=== PATIENT | female | born 1965 | race Caucasian/White ===

== ENCOUNTER 2021-03-21 10:43 | Inpatient (IN) ==
[2021-03-21] MEDS ORDERED: SODIUM CHLORIDE 0.9% 1000ML 1,000 ML IV SCH (12:00)
--- NOTE | 2021-03-21 12:01 | XRay Report ---
XR chest 1V portable HISTORY: 56 years-old Female weakness acute weakness COMPARISON: None TECHNIQUE: Portable AP view of the chest FINDINGS: Cardiac silhouette is enlarged. A battery pack projects of the left chest with a single lead projecte d over the left neck. Lungs are mildly hypoinflated. There is no pneumothorax, pleural effusion, airs pace consolidation or overt pulmonary edema. Bones of the chest appear grossly intact. IMPRESSION: Hypoinflation without acute process. ACT 112: Negative or not required by law. The above report was generated using voice recognition software. It may contain grammatical, syntax o r spelling errors. Electronically signed by: Maurice Delgado M.D. 03/21/2021 11:59 AM
--- NOTE | 2021-03-21 12:10 | Emergency Department Note ---
Impression & Plan AMS (altered mental status), [facility] ED Provider Note NAME: BRADY BARBOSA AGE: 56 SEX: F : 1965 ARRIVES VIA: Walk-In INFORMANT: Patient, care support representative ED PROVIDER(S): Tip Suazo DO CHIEF COMPLAINT: weak and falls HPI: Patient is a 56-year-old female who presents the ER for weakness. Patient has been getting much more weaker and confused over the past 2 to 3 weeks. This has been gradually going downhill over the past 2 months. Patient is having trouble standing and getting dressed. She normally knows where she is and what is going on but has been confused to the point that she does not know any of this. Patient denies any headache or change in vision. She admits to some belly pain as well as chronic back pain. Denies any pain in the arms or legs. No nausea, vomiting, or diarrhea. No dysuria, urgency, or frequency. No other exacerbating or remitting factors. ROS: See above HPI for pertinent positives & negatives. A total of 10 systems reviewed and were otherwise negative. PAST MEDICAL HISTORY:See Below PAST SURGICAL HISTORY:See Below FAMILY HISTORY:See Below SOCIAL HISTORY:See Below HOME MEDICATIONS:See Below ALLERGIES:See Below VITALS:See Below PHYSICAL EXAMINATION: GENERAL: Sitting up in bed, alert, chronically ill-appearing, disheveled EYE EXAM: normal conjunctiva. PERRL and EOM's intact. OROPHARYNX: no exudate, no erythema, lips, buccal mucosa, and tongue normal and mucous membranes are moist NECK: supple, no nuchal rigidity, no adenopathy, non-tender LUNGS: Clear to auscultation. Normal chest wall mechanics HEART: no murmurs, S1 normal and S2 normal ABDOMEN: abdomen soft, non-tender, normo-active bowel sounds, no masses, no rebound or guarding. BACK: Back is symmetrical on inspection and there is no deformity, no midline tenderness, no CVA tenderness. UPPER EXTREMITIES: upper extremities are grossly normal. LOWER EXTREMITIES: No pitting edema. NEURO EXAM: Awake alert not oriented to person or place, cranial nerves II-XII intact, normal speech, no weakness of arms, no weakness of legs. No drift. F thad to nose intact. Gross sensation intact. MEDICAL DECISION MAKING: Patient is a 56-year-old female who presents the ER for altered mental status brought in by caretakers. IV was established blood was obtained. Labs show mild leukocytosis 10.9 thousand. No significant anemia. INR unremarkable. ABG with a pH of 7.28 and a CO2 of 61. BMP with LFTs bilirubin was unremarkable. Troponin was negative. Ammonia was elevated at 51. TSH was unremarkable. Covid was negative. CT head cervical spine abdomen pelvis showed some thickening of the bowel. Patient was given IV fluids. She was placed on BiPAP for the elevated CO2. She was discussed with hospitalist admitted for further work-up of her recurrent falls altered mental status and [facility]car[facility]. Triage Nursing notes reviewed. Limited review of prior medical records performed Vital Signs: reviewed and remarkable for no significant abnormalities Differential diagnosis: Differential diagnoses includes but is not limited to toxic, metabolic, infectious, traumatic, cardiac, neurologic, hematologic, psychiatric and inflammatory etiologies. ER treatment provided: See below Diagnostics interpreted by me: ECG: Sinus rhythm rate of 6 7 Normal axis No PVCs QTC 420 Cardiac Monitoring: An order was placed for continuous cardiac monitoring. The monitor shows a rate of 62 with sinus rhythm. Laboratory studies: As stated above and show below. Imaging studies: See below Consultation(s): Discussed with hospitalist for further evaluation Procedures: none Critical Care: I have personally spent 32 minutes of critical care time in the direct management of this patient. This includes bedside care, interpretation of diagnostic studies, and testing, discussion with consultants, patient, and family members, and other required patient management activities. This 32 minutes is in excess of all separately billable procedures. Past Med/Surg History Social History Preferred Language: Bur[place]ian Feels Safe at Home: Yes Allergies Allergies Allergy/AdvReac Type Severity Reaction Status Date / Time topiramate [From Topamax] Allergy Unknown Verified 03/21/21 15:22 Home Meds Home Medications Medication Instructions Recorded Confirmed acetaminophen [Tylenol Extra 500 mg PO Q4 PRN 03/21/21 03/21/21 Strength] aluminum hydrox-magnesium carb 10 ml PO UD 03/21/21 03/21/21 [Antacid] brivaracetam [Briviact] 100 mg PO BID 03/21/21 03/21/21 calcium carbonate-vitamin D3 1 cap PO DAILY 03/21/21 03/21/21 [Calcium 600 with Vitamin D3] carboxymethylcellulose-glycern 1 drp OPHTHALMIC (EYE) BID 03/21/21 03/21/21 [Refresh Relieva] chlorpheniramine-acetaminophen 2 tab PO Q4 PRN 03/21/21 03/21/21 [Coricidin HBP Cold and Flu] clobazam 20 mg PO HS 03/21/21 03/21/21 clobazam [Onfi] 10 mg PO DAILY 03/21/21 03/21/21 clonazepam 1 mg PO UD 03/21/21 03/21/21 clotrimazole 1 applic TOPICAL BID PRN 03/21/21 03/21/21 cyclobenzaprine 10 mg PO Q8 PRN 03/21/21 03/21/21 docusate sodium 100 mg PO BID 03/21/21 03/21/21 donepezil 5 mg PO HS 03/21/21 03/21/21 escitalopram oxalate 20 mg PO DAILY 03/21/21 03/21/21 fenofibrate micronized 134 mg PO DAILY 03/21/21 03/21/21 gabapentin 400 mg PO HS 03/21/21 03/21/21 gabapentin 400 mg PO TID 03/21/21 03/21/21 ibuprofen 200 mg PO Q4 PRN 03/21/21 03/21/21 lactulose 15 ml PO Q6 03/21/21 03/21/21 lamotrigine 200 mg PO TID 03/21/21 03/21/21 metoprolol tartrate 12.5 mg PO DIRECTED 03/21/21 03/21/21 naproxen sodium [All Day Relief] 440 mg PO Q12H PRN 03/21/21 03/21/21 omeprazole 20 mg PO DAILY 03/21/21 03/21/21 quetiapine 400 mg PO HS 03/21/21 03/21/21 trazodone 150 mg PO HS 03/21/21 03/21/21 Results & Data (ED) Vital Signs Vital Signs - 24 hr 03/21/21 11:01 03/21/21 12:21 03/21/21 12:25 Temperature 36.2 C L Temperature Source Temporal Artery Scan Pulse Rate 71 69 72 Pulse Rate from SpO2 Sensor 68 Respiratory Rate 14 19 20 Respiratory Effort / Characteristics Respiratory Depth Blood Pressure 109/73 118/74 Blood Pressure [Left Arm] 118/74 Blood Pressure Mean 85 88 Blood Pressure Mean [Left Arm] 88 Pulse Oximetry 93 91 90 Oxygen Delivery Method Room Air Room Air Fraction of Inspired Oxygen Sepsis New/Unexplained Change in Mental Status N/A Sepsis Action Taken by Nursing No Action Required 03/21/21 13:00 03/21/21 13:31 03/21/21 13:40 Temperature Temperature Source Pulse Rate 65 65 65 Pulse Rate from SpO2 Sensor 65 65 Respiratory Rate 22 27 H 21 Respiratory Effort / Characteristics Respiratory Depth Blood Pressure 116/82 Blood Pressure [Left Arm] Blood Pressure Mean 93 Blood Pressure Mean [Left Arm] Pulse Oximetry 91 92 Oxygen Delivery Method Fraction of Inspired Oxygen Sepsis New/Unexplained Change in Mental Status Sepsis Action Taken by Nursing 03/21/21 13:50 03/21/21 14:00 03/21/21 14:10 Temperature Temperature Source Pulse Rate 65 66 65 Pulse Rate from SpO2 Sensor 65 65 65 Respiratory Rate 21 21 25 H Respiratory Effort / Characteristics Respiratory Depth Blood Pressure Blood Pressure [Left Arm] Blood Pressure Mean Blood Pressure Mean [Left Arm] Pulse Oximetry 93 93 93 Oxygen Delivery Method Fraction of Inspired Oxygen Sepsis New/Unexplained Change in Mental Status Sepsis Action Taken by Nursing 03/21/21 14:20 03/21/21 14:30 03/21/21 14:40 Temperature Temperature Source Pulse Rate 63 63 61 Pulse Rate from SpO2 Sensor 63 63 61 Respiratory Rate 21 20 22 Respiratory Effort / Characteristics Respiratory Depth Blood Pressure Blood Pressure [Left Arm] Blood Pressure Mean Blood Pressure Mean [Left Arm] Pulse Oximetry 94 93 92 Oxygen Delivery Method Fraction of Inspired Oxygen Sepsis New/Unexplained Change in Mental Status Sepsis Action Taken by Nursing 03/21/21 14:50 03/21/21 15:00 03/21/21 15:10 Temperature Temperature Source Pulse Rate 70 63 64 Pulse Rate from SpO2 Sensor 67 61 68 Respiratory Rate 17 22 25 H Respiratory Effort / Characteristics Respiratory Depth Blood Pressure Blood Pressure [Left Arm] Blood Pressure Mean Blood Pressure Mean [Left Arm] Pulse Oximetry 93 93 92 Oxygen Delivery Method Fraction of Inspired Oxygen Sepsis New/Unexplained Change in Mental Status Sepsis Action Taken by Nursing 03/21/21 15:20 03/21/21 15:30 03/21/21 16:00 Temperature Temperature Source Pulse Rate 64 65 63 Pulse Rate from SpO2 Sensor 66 69 Respiratory Rate 24 20 21 Respiratory Effort / Characteristics Respiratory Depth Blood Pressure 128/82 Blood Pressure [Left Arm] Blood Pressure Mean 97 Blood Pressure Mean [Left Arm] Pulse Oximetry 87 L 93 Oxygen Delivery Method Fraction of Inspired Oxygen Sepsis New/Unexplained Change in Mental Status Sepsis Action Taken by Nursing 03/21/21 16:30 03/21/21 16:42 03/21/21 17:00 Temperature Temperature Source Pulse Rate 66 67 65 Pulse Rate from SpO2 Sensor 65 Respiratory Rate 19 18 23 Respiratory Effort / Characteristics Non-Labored Spontaneous Respiratory Depth Normal Blood Pressure 131/82 119/80 Blood Pressure [Left Arm] Blood Pressure Mean 98 93 Blood Pressure Mean [Left Arm] Pulse Oximetry 94 99 Oxygen Delivery Method Fraction of Inspired Oxygen 30 Sepsis New/Unexplained Change in Mental Status Sepsis Action Taken by Nursing 03/21/21 17:30 03/21/21 18:00 03/21/21 18:49 Temperature Temperature Source Pulse Rate 63 65 Pulse Rate from SpO2 Sensor 63 65 Respiratory Rate 18 21 Respiratory Effort / Characteristics Respiratory Depth Blood Pressure 121/81 116/79 Blood Pressure [Left Arm] Blood Pressure Mean 94 91 Blood Pressure Mean [Left Arm] Pulse Oximetry 100 96 Oxygen Delivery Method BiPAP Fraction of Inspired Oxygen Sepsis New/Unexplained Change in Mental Status Sepsis Action Taken by Nursing Laboratory Data Result diagrams: 03/21/21 12:14 03/21/21 12:14 Lab Results 03/21/21 03/21/21 03/21/21 Range/Units 12:14 12:14 12:14 WBC 10.91 H (4.8-10.8) K/uL RBC 4.33 (4.2-5.4) M/uL Hgb 13.0 (12.0-16.0) g/dL Hct 40.6 (37-47) % MCV 93.8 (80-100) fL MCH 30.0 (25-34) pg MCHC 32.0 (32-36) g/dL RDW Std Deviation 46.3 (36.4-46.3) fL RDW Coeff of Yulissa 13.5 (11.5-14.5) % Plt Count 293 (130-400) K/uL MPV 10.0 (7.4-10.4) fL Immature Gran % (Auto) 0.5 % Neut % (Auto) 72.2 % Lymph % (Auto) 21.4 % Yolo % (Auto) 3.6 % Eos % (Auto) 2.1 % Baso % (Auto) 0.2 % Neut # (Auto) 7.89 H (1.4-6.5) K/uL Lymph # (Auto) 2.33 (1.2-3.4) K/uL [place] # (Auto) 0.39 (0.11-0.59) K/uL Eos # (Auto) 0.23 (0-0.5) K/uL Baso # (Auto) 0.02 (0-0.2) K/uL Immature Gran # (Auto) 0.05 H (0.00-0.02) K/uL PT 11.1 (9.0-12.0) Seconds INR 1.1 (0.9-1.1) VBG pH (7.36-7.41) VBG pCO2 (38-50) mmHg VBG pO2 mmHg VBG HCO3 mmol/L VBG O2 Saturation % VBG Base Excess mEq/L Barometric Pressure mm/Hg Sodium 138 (136-145) mmol/L Potassium 4.2 (3.5-5.1) mmol/L Chloride 106 (98-107) mmol/L Carbon Dioxide 30 (21-32) mmol/L Anion Gap 2.0 L (3-11) BUN 15 (7-18) mg/dl Creatinine 0.82 (0.6-1.2) mg/dl Est Cr Clr Drug Dosing Not Reportable Est GFR ( Amer) 94.0 ml/min Est GFR (Non-Af Amer) 81.1 ml/min BUN/Creatinine Ratio 18.0 (10-20) Glucose 88 (70-99) mg/dl Calcium 9.6 (8.5-10.1) mg/dl Total Bilirubin 0.4 (0.2-1) mg/dl AST 47 H (15-37) U/L ALT 48 (12-78) U/L Alkaline Phosphatase 64 (45-117) U/L Ammonia (11-32) umol/L Troponin I < 0.015 (0-0.045) ng/ml Total Protein 7.5 (6.4-8.2) gm/dl Albumin 3.8 (3.4-5.0) gm/dl Globulin 3.7 (2.5-4.0) gm/dl Albumin/Globulin Ratio 1.0 (0.9-2) Procalcitonin TSH 1.510 (0.300-4.500) uIu/ml Specimen Hemolysis COVID-19 Eval Order SARS-CoV-2 (PCR) (Negative) 03/21/21 03/21/21 03/21/21 Range/Units 12:14 12:30 14:17 WBC (4.8-10.8) K/uL RBC (4.2-5.4) M/uL Hgb (12.0-16.0) g/dL Hct (37-47) % MCV (80-100) fL MCH (25-34) pg MCHC (32-36) g/dL RDW Std Deviation (36.4-46.3) fL RDW Coeff of Yulissa (11.5-14.5) % Plt Count (130-400) K/uL MPV (7.4-10.4) fL Immature Gran % (Auto) % Neut % (Auto) % Lymph % (Auto) % [place] % (Auto) % Eos % (Auto) % Baso % (Auto) % Neut # (Auto) (1.4-6.5) K/uL Lymph # (Auto) (1.2-3.4) K/uL Yolo # (Auto) (0.11-0.59) K/uL Eos # (Auto) (0-0.5) K/uL Baso # (Auto) (0-0.2) K/uL Immature Gran # (Auto) (0.00-0.02) K/uL PT (9.0-12.0) Seconds INR (0.9-1.1) VBG pH 7.28 L (7.36-7.41) VBG pCO2 61 H (38-50) mmHg VBG pO2 30 mmHg VBG HCO3 28 mmol/L VBG O2 Saturation < 60.0 % VBG Base Excess 0.4 mEq/L Barometric Pressure 735.8 mm/Hg Sodium (136-145) mmol/L Potassium (3.5-5.1) mmol/L Chloride (98-107) mmol/L Carbon Dioxide (21-32) mmol/L Anion Gap (3-11) BUN (7-18) mg/dl Creatinine (0.6-1.2) mg/dl Est Cr Clr Drug Dosing Est GFR ( Amer) ml/min Est GFR (Non-Af Amer) ml/min BUN/Creatinine Ratio (10-20) Glucose (70-99) mg/dl Calcium (8.5-10.1) mg/dl Total Bilirubin (0.2-1) mg/dl AST (15-37) U/L ALT (12-78) U/L Alkaline Phosphatase (45-117) U/L Ammonia 51.0 H (11-32) umol/L Troponin I (0-0.045) ng/ml Total Protein (6.4-8.2) gm/dl Albumin (3.4-5.0) gm/dl Globulin (2.5-4.0) gm/dl Albumin/Globulin Ratio (0.9-2) Procalcitonin Cancelled TSH (0.300-4.500) uIu/ml Specimen Hemolysis COVID-19 Eval Order SARS-CoV-2 (PCR) (Negative) 03/21/21 03/21/21 Range/Units 14:31 14:31 WBC (4.8-10.8) K/uL RBC (4.2-5.4) M/uL Hgb (12.0-16.0) g/dL Hct (37-47) % MCV (80-100) fL MCH (25-34) pg MCHC (32-36) g/dL RDW Std Deviation (36.4-46.3) fL RDW Coeff of Yulissa (11.5-14.5) % Plt Count (130-400) K/uL MPV (7.4-10.4) fL Immature Gran % (Auto) % Neut % (Auto) % Lymph % (Auto) % Y[place] % (Auto) % Eos % (Auto) % Baso % (Auto) % Neut # (Auto) (1.4-6.5) K/uL Lymph # (Auto) (1.2-3.4) K/uL Y[place] # (Auto) (0.11-0.59) K/uL Eos # (Auto) (0-0.5) K/uL Baso # (Auto) (0-0.2) K/uL Immature Gran # (Auto) (0.00-0.02) K/uL PT (9.0-12.0) Seconds INR (0.9-1.1) VBG pH (7.36-7.41) VBG pCO2 (38-50) mmHg VBG pO2 mmHg VBG HCO3 mmol/L VBG O2 Saturation % VBG Base Excess mEq/L Barometric Pressure mm/Hg Sodium (136-145) mmol/L Potassium (3.5-5.1) mmol/L Chloride (98-107) mmol/L Carbon Dioxide (21-32) mmol/L Anion Gap (3-11) BUN (7-18) mg/dl Creatinine (0.6-1.2) mg/dl Est Cr Clr Drug Dosing Est GFR ( Amer) ml/min Est GFR (Non-Af Amer) ml/min BUN/Creatinine Ratio (10-20) Glucose (70-99) mg/dl Calcium (8.5-10.1) mg/dl Total Bilirubin (0.2-1) mg/dl AST (15-37) U/L ALT (12-78) U/L Alkaline Phosphatase (45-117) U/L Ammonia (11-32) umol/L Troponin I (0-0.045) ng/ml Total Protein (6.4-8.2) gm/dl Albumin (3.4-5.0) gm/dl Globulin (2.5-4.0) gm/dl Albumin/Globulin Ratio (0.9-2) Procalcitonin TSH (0.300-4.500) uIu/ml Specimen Hemolysis COVID-19 Eval Order Covid19 at [facility] SARS-CoV-2 (PCR) NEGATIVE (Negative) Administered Medications Discontinued Medications Sodium Chloride (Nss 1000ml) 1,000 mls @ 999 mls/hr IV .Q1H1M LILO Stop: 03/21/21 13:00 Last Infusion: 03/21/21 13:54 Dose: 0 mls/hr Documented by: [id number] Admin: 03/21/21 12:31 Dose: 999 mls/hr Documented by: [id number] Ioversol (Optiray 320 100ml) 94 ml IV ONCE ONE Stop: 03/21/21 13:13 Last Admin: 03/21/21 13:13 Dose: 94 ml Documented by: [id number] Imaging Data Radiologist's Impression: Chest X-Ray 03/21/21 11:46 XR chest 1V portable HISTORY: 56 years-old Female weakness acute weakness COMPARISON: None TECHNIQUE: Portable AP view of the chest FINDINGS: Cardiac silhouette is enlarged. A battery pack projects of the left chest with a single lead projected over the left neck. Lungs are mildly hypoinflated. There is no pneumothorax, pleural effusion, airspace consolidation or overt pulmonary edema. Bones of the chest appear grossly intact. IMPRESSION: Hypoinflation without acute process. ACT 112: Negative or not required by law. The above report was generated using voice recognition software. It may contain grammatical, syntax or spelling errors. Electronically signed by: Maurice Delgado M.D. 03/21/2021 11:[address] 03/21/21 11:46 CT head/brain wo con CLINICAL HISTORY: 56 years-old Female with headache. Acute headache TECHNIQUE: Multiple axial CT images of the head were obtained without contrast. A dose lowering technique was utilized adhering to the principles of ALARA. COMPARISON: CT cervical spine of same day FINDINGS: No acute intracranial hemorrhage, midline shift, intracranial mass, hydrocephalus, territorial ischemia or abnormal extra-axial collection. Senescent calcifications of the basal ganglia. The calvarium is intact. Mastoid air cells are clear. Moderate mucosal thickening of the maxillary sinuses with air-fluid levels. Severe mucosal thickening of the ethmoid air cells. Mucosal thickening of the frontal and ethmoid sinuses with small left sinus air-fluid level. Unremarkable soft tissues and orbits. IMPRESSION: 1. No acute intracranial abnormality. 2. Paranasal sinus disease with suggestion of acute sinusitis. ACT 112: Negative or not required by law. The above report was generated using voice recognition software. It may contain grammatical, syntax or spelling errors. Electronically signed by: Maurice Delgado M.D. 03/21/2021 1:25 PM Abdomen/Pelvis CT 03/21/21 12:[address] WITH IV CONTRAST CT DOSE: HISTORY: Weakness. Confusion. Difficulty walking. TECHNIQUE: Multiaxial CT images of the abdomen and pelvis were performed following the use of intravenous contrast. A dose lowering technique was utilized adhering to the principles of ALARA. COMPARISON STUDY: None. FINDINGS: Faint groundglass densities within the right lower lung zone may represent mild dependent change. No pneumoperitoneum. No pneumatosis. No fractures within the visualized osseous structures. Degenerative changes within the mid to lower lumbar spine. Mild hepatic steatosis. No hepatic or splenic masses. The right adrenal gland, pancreas, and gallbladder are unremarkable. Mild bilateral perinephric edema. This is likely chronic. No hydronephrosis. Normal right kidney. There is a 9 mm exophytic hypodense lesion within the left kidney. This is technically too small to characterize but favors a cyst. There is a 7 mm left adrenal gland nodule. This is also difficult to characterize due to its small size. No retroperitoneal lymphadenopathy. Normal caliber abdominal aorta. The main portal vein is patent. Punctate focus of gas within the bladder lumen. Prior hysterectomy. Trace pelvic free fluid. No evidence for bowel obstruction. Normal appendix. Mild thickening and pericolonic fat stranding involving the ascending colon and transverse colon consistent with a nonspecific colitis. This favors an infectious or inflammatory process. The area bowel wall thickening is most pronounced within the mid to distal colon best seen on image 141. IMPRESSION: 1. [id number] bowel wall thickening with mild pericolonic inflammatory change involving the ascending colon and transverse colon. This is consistent with a nonspecific colitis and favors an infectious or inflammatory process. Follow-up abdomen and pelvis CT in 3 months is recommended to ensure resolution of the areas of bowel wall thickening and exclude the less likely possibility of underlying lesion in the area of most pronounced bowel wall thickening at the mid to distal transverse colon. 2. No evidence for bowel obstruction. 3. Normal appendix. 4. Mild hepatic steatosis. 5. Trace pelvic free fluid. 6. Punctate focus of gas within the bladder lumen. This could be due to recent catheterization. 7. A 7 mm indeterminate left adrenal gland nodule. ACT 112: Positive. There are findings on this exam that require communication between the performing entity and the patient following Patient Test Result Information Act ([place] Act 112) guidelines. Electronically signed by: Benny Islas M.D. 03/21/2021 1:[address] 03/21/21 12:08 CT OF THE CERVICAL SPINE CLINICAL HISTORY: Neck pain status post trauma COMPARISON STUDY: No previous studies for comparison. CT DOSE: 2272.98 mGy.cm TECHNIQUE: CT scan of the cervical spine was performed from the skull base to the thoracic inlet. Images are reviewed in the axial, sagittal, and coronal planes. IV contrast was not administered for this examination. A dose lowering technique was utilized adhering to the principles of ALARA. FINDINGS: The visualized portions of the lung apices reveal no evidence of pneumothorax. Stimulator electrodes are visualized within the left neck. The prevertebral soft tissues are normal. No acute fractures or subluxations are visualized. There are multilevel degenerative changes. Mild T2 and T3 superior endplate deformities are likely old. IMPRESSION: No evidence of acute fracture or traumatic subluxation. ACT 112: Negative or not required by law. Electronically signed by: Aashish Salazar M.D. 03/21/2021 1:33 PM Discharge Plan Visit Data Chief Complaint: Illness Stated Complaint: FALLING,PALE,WEAK,CANT EAT/DRINK OR STAND ED Provider: Tip Suazo Discharge Problem: AMS (altered mental status), [facility] Discharge Instructions Interventions: ED Discharge Assessment Last Done: 03/21/21 18:49 Forms Stand Alone Forms: [facility] Prescriptions Prescriptions: No Action cyclobenzaprine 10 mg tablet 10 mg PO Q8 PRN (Reason: Muscle Spasm) RF: 0 Antacid 95-358 mg/15 mL Suspension 10 ml PO UD RF: 0 lamotrigine 200 mg tablet 200 mg PO TID RF: 0 donepezil 5 mg tablet 5 mg PO HS RF: 0 gabapentin 400 mg capsule 400 mg PO TID RF: 0 acetaminophen [Tylenol Extra Strength] 500 mg Tablet 500 mg PO Q4 PRN (Reason: hernandez/fever) RF: 0 fenofibrate micronized 134 mg capsule 134 mg PO DAILY RF: 0 gabapentin 800 mg tablet 400 mg PO HS RF: 0 trazodone 150 mg tablet 150 mg PO HS RF: 0 naproxen sodium [All Day Relief] 220 mg Tablet 440 mg PO Q12H PRN (Reason: Pain) RF: 0 ibuprofen 200 mg Tablet 200 mg PO Q4 PRN (Reason: Fever Or Pain) RF: 0 docusate sodium 100 mg Capsule 100 mg PO BID RF: 0 omeprazole 20 mg capsule,delayed release(DR/EC) 20 mg PO DAILY RF: 0 clotrimazole 1 % Cream 1 applic TOPICAL BID PRN (Reason: candidiasis) RF: 0 Coricidin HBP Cold and Flu 2-325 mg Tablet 2 tab PO Q4 PRN (Reason: body aches/congestion) RF: 0 escitalopram oxalate 20 mg tablet 20 mg PO DAILY RF: 0 clonazepam 1 mg tablet,disintegrating 1 mg PO UD RF: 0 metoprolol tartrate 25 mg tablet 12.5 mg PO DIRECTED RF: 0 lactulose 10 gram/15 mL solution 15 ml PO Q6 RF: 0 quetiapine 400 mg tablet 400 mg PO HS RF: 0 Refresh Relieva 0.5-0.9 % Drops 1 drp OPHTHALMIC (EYE) BID RF: 0 calcium carbonate-vitamin D3 [Calcium 600 with Vitamin D3] 600 mg(1,500mg) - 500 unit Capsule 1 cap PO DAILY RF: 0 clobazam 10 mg tablet 20 mg PO HS RF: 0 clobazam [Onfi] 10 mg tablet 10 mg PO DAILY RF: 0 Briviact 100 mg tablet 100 mg PO BID RF: 0 Referrals Referrals: Nestor Pruett, [Primary Care Provider] - Discharge Problem: AMS (altered mental status) Qualifiers: Altered mental status type: unspecified Qualified Code(s): R41.82 - Altered mental status, unspecified
[2021-03-21 12:24] LABS: Basophils # (auto) 0.02 K/uL (0-0.2); Basophils % (auto) 0.2 %; Eosinophils # (auto) 0.23 K/uL (0-0.5); Eosinophils % (auto) 2.1 %; Hematocrit (blood only) 40.6 % (37-47); Immature Granulocytes # (auto) 0.05 K/uL (0.00-0.02); Immature Granulocytes % (auto) 0.5 %; Lymphocytes # (auto) 2.33 K/uL (1.2-3.4); Lymphocytes % (auto) 21.4 %; Mean Corpuscular Volume 93.8 fL (80-100); Monocytes # (auto) 0.39 K/uL (0.11-0.59); Monocytes % (auto) 3.6 %; Neutrophils # (auto) 7.89 K/uL (1.4-6.5); Neutrophils % (auto) 72.2 %; Platelet Count 293 K/uL (130-400); RDW Coefficient of Variation 13.5 % (11.5-14.5); RDW Standard Deviation 46.3 fL (36.4-46.3); Red Blood Count 4.33 M/uL (4.2-5.4); White Blood Count 10.91 K/uL (4.8-10.8)
[2021-03-21 12:32] LABS: INR 1.1 (0.9-1.1); Prothrombin Time 11.1 Seconds (9.0-12.0)
[2021-03-21 12:50] LABS: Alanine Aminotransferase 48 U/L (12-78); Albumin Level 3.8 gm/dl (3.4-5.0); Aspartate Aminotransferase 47 U/L (15-37); Blood Urea Nitrogen 15 mg/dl (7-18); Calcium 9.6 mg/dl (8.5-10.1); Carbon Dioxide 30 mmol/L (21-32); Chloride 106 mmol/L (98-107); Est GFR (Non-African American) 81.1 ml/min; Glucose 88 mg/dl (70-99); Potassium 4.2 mmol/L (3.5-5.1); Sodium 138 mmol/L (136-145)
[2021-03-21 13:03] LABS: Alkaline Phosphatase 64 U/L (45-117); Bilirubin,Total 0.4 mg/dl (0.2-1); Globulin 3.7 gm/dl (2.5-4.0); Total Protein 7.5 gm/dl (6.4-8.2); Troponin I < 0.015 ng/ml (0-0.045)
[2021-03-21] MEDS ORDERED: OPTIRAY 320 100ml IV ONE (13:12)
--- NOTE | 2021-03-21 13:26 | CT Scan Report ---
CT head/brain wo con CLINICAL HISTORY: 56 years-old Female with headache. Acute headache TECHNIQUE: Multiple axial CT images of the head were obtained without contrast. A dose lowering tech nique was utilized adhering to the principles of ALARA. COMPARISON: CT cervical spine of same day FINDINGS: No acute intracranial hemorrhage, midline shift, intracranial mass, hydrocephalus, territorial ischem ia or abnormal extra-axial collection. Senescent calcifications of the basal ganglia. The calvarium is intact. Mastoid air cells are clear. Moderate mucosal thickening of the maxillary s inuses with air-fluid levels. Severe mucosal thickening of the ethmoid air cells. Mucosal thickening of the frontal and ethmoid sinuses with small left sinus air-fluid level. Unremarkable soft tissues a nd orbits. IMPRESSION: 1. No acute intracranial abnormality. 2. Paranasal sinus disease with suggestion of acute sinusitis. ACT 112: Negative or not required by law. The above report was generated using voice recognition software. It may contain grammatical, syntax o r spelling errors. Electronically signed by: Maurice Delgado M.D. 03/21/2021 1:25 PM
--- NOTE | 2021-03-21 13:34 | CT Scan Report ---
CT OF THE CERVICAL SPINE CLINICAL HISTORY: Neck pain status post trauma COMPARISON STUDY: No previous studies for comparison. CT DOSE: 2272.98 mGy.cm TECHNIQUE: CT scan of the cervical spine was performed from the skull base to the thoracic inlet. Jessica ges are reviewed in the axial, sagittal, and coronal planes. IV contrast was not administered for thi s examination. A dose lowering technique was utilized adhering to the principles of ALARA. FINDINGS: The visualized portions of the lung apices reveal no evidence of pneumothorax. Stimulator electrodes are visualized within the left neck. The prevertebral soft tissues are normal. No acute fractures or subluxations are visualized. There are multilevel degenerative changes. Mild T2 and T3 superior endplate deformities are likely ol d. IMPRESSION: No evidence of acute fracture or traumatic subluxation. ACT 112: Negative or not required by law. Electronically signed by: Aashish Salazar M.D. 03/21/2021 1:33 PM
--- NOTE | 2021-03-21 13:56 | CT Scan Report ---
ABDOMEN AND PELVIS CT WITH IV CONTRAST CT DOSE: HISTORY: Weakness. Confusion. Difficulty walking. TECHNIQUE: Multiaxial CT images of the abdomen and pelvis were performed following the use of intrave nous contrast. A dose lowering technique was utilized adhering to the principles of ALARA. COMPARISON STUDY: None. FINDINGS: Faint groundglass densities within the right lower lung zone may represent mild dependent c hange. No pneumoperitoneum. No pneumatosis. No fractures within the visualized osseous structures. De generative changes within the mid to lower lumbar spine. Mild hepatic steatosis. No hepatic or spleni c masses. The right adrenal gland, pancreas, and gallbladder are unremarkable. Mild bilateral perinep hric edema. This is likely chronic. No hydronephrosis. Normal right kidney. There is a 9 mm exophytic hypodense lesion within the left kidney. This is technically too small to characterize but favors a cyst. There is a 7 mm left adrenal gland nodule. This is also difficult to characterize due to its sm all size. No retroperitoneal lymphadenopathy. Normal caliber abdominal aorta. The main portal vein is patent. Punctate focus of gas within the bladder lumen. Prior hysterectomy. Trace pelvic free fluid. No evidence for bowel obstruction. Normal appendix. Mild thickening and pericolonic fat stranding in volving the ascending colon and transverse colon consistent with a nonspecific colitis. This favors a n infectious or inflammatory process. The area bowel wall thickening is most pronounced within the mi d to distal colon best seen on image 141. IMPRESSION: 1. Fawi-hq-mucupsay bowel wall thickening with mild pericolonic inflammatory change involving the asc ending colon and transverse colon. This is consistent with a nonspecific colitis and favors an infect ious or inflammatory process. Follow-up abdomen and pelvis CT in 3 months is recommended to ensure re solution of the areas of bowel wall thickening and exclude the less likely possibility of underlying lesion in the area of most pronounced bowel wall thickening at the mid to distal transverse colon. 2. No evidence for bowel obstruction. 3. Normal appendix. 4. Mild hepatic steatosis. 5. Trace pelvic free fluid. 6. Punctate focus of gas within the bladder lumen. This could be due to recent catheterization. 7. A 7 mm indeterminate left adrenal gland nodule. ACT 112: Positive. There are findings on this exam that require communication between the performing entity and the patient following Patient Test Result Information Act ([place] Act 112) guidelines. Electronically signed by: Benny Islas M.D. 03/21/2021 1:55 PM
[2021-03-21 14:32] LABS: Base Excess VBG 0.4 mEq/L; HCO3 VBG 28 mmol/L; PCO2 VBG 61 mmHg (38-50); PO2 VBG 30 mmHg; pH VBG 7.28 (7.36-7.41)
[2021-03-21 14:50] LABS: Oxygen Saturation VBG < 60.0 %
--- NOTE | 2021-03-21 16:56 | History & Physical Report ---
Date of Service March 21, 2021 Assessment & Plan (1) AMS (altered mental status): Patient appears to have some sort of chronic dementia Issue is lack of patient history. will obtain records tomorrow from PCP. will consult Neurology for input as well given that she is known to the [facility] service. Chelsie tappered to have improved with the BIPAP, may be multifactorial and may be due to hypercarbia. will check VBG in AM. (2) Hypercarbia: Patient is a smoker. She may have COPD. will benefit from PFT as an outpatient (3) Seizure: will resume home meds. History of Present Illness Chief Complaint: dementia Primary Care Provider: Nestor Younger Capp, DO Patient is a poor historian, she is accompanied by a friend from the longterm. It appears that the past 2 months she has been declining, now she needs help with assisting clothes, and leaning. Walking was the first sign: "legs would bend and she would lean forward and felt weak." Prior to this she could walk, eventhough she was a fall risk. Then she requested a cane, which only helped for a week. Now she has to use a wheelchair Once, March 13 came, patient began having other issues showering, dresing, getting shakey. She has become more forgetful. It appears she has some sort of dementia : now words are getting garbled. She has a VNS chest for seizure. She follows up with Dr. Valdes Patient's [facility] December [phone] extension 11 CAN BE CONTACTED TOMORROW. Patient has PMH:Dementia Seizures Allergies Allergy/AdvReac Type Severity Reaction Status Date / Time topiramate [From Topamax] Allergy Unknown Verified 03/21/21 15:22 Home Medications Medication Instructions Recorded Confirmed Type acetaminophen [Tylenol Extra 500 mg PO Q4 PRN 03/21/21 03/21/21 History Strength] aluminum hydrox-magnesium carb 10 ml PO UD 03/21/21 03/21/21 History [Antacid] brivaracetam [Briviact] 100 mg PO BID 03/21/21 03/21/21 History calcium carbonate-vitamin D3 1 cap PO DAILY 03/21/21 03/21/21 History [Calcium 600 with Vitamin D3] carboxymethylcellulose-glycern 1 drp OPHTHALMIC (EYE) BID 03/21/21 03/21/21 History [Refresh Relieva] chlorpheniramine-acetaminophen 2 tab PO Q4 PRN 03/21/21 03/21/21 History [Coricidin HBP Cold and Flu] clobazam 20 mg PO HS 03/21/21 03/21/21 History clobazam [Onfi] 10 mg PO DAILY 03/21/21 03/21/21 History clonazepam 1 mg PO UD 03/21/21 03/21/21 History clotrimazole 1 applic TOPICAL BID PRN 03/21/21 03/21/21 History cyclobenzaprine 10 mg PO Q8 PRN 03/21/21 03/21/21 History docusate sodium 100 mg PO BID 03/21/21 03/21/21 History donepezil 5 mg PO HS 03/21/21 03/21/21 History escitalopram oxalate 20 mg PO DAILY 03/21/21 03/21/21 History fenofibrate micronized 134 mg PO DAILY 03/21/21 03/21/21 History gabapentin 400 mg PO HS 03/21/21 03/21/21 History gabapentin 400 mg PO TID 03/21/21 03/21/21 History ibuprofen 200 mg PO Q4 PRN 03/21/21 03/21/21 History lactulose 15 ml PO Q6 03/21/21 03/21/21 History lamotrigine 200 mg PO TID 03/21/21 03/21/21 History metoprolol tartrate 12.5 mg PO DIRECTED 03/21/21 03/21/21 History naproxen sodium [All Day Relief] 440 mg PO Q12H PRN 03/21/21 03/21/21 History omeprazole 20 mg PO DAILY 03/21/21 03/21/21 History quetiapine 400 mg PO HS 03/21/21 03/21/21 History trazodone 150 mg PO HS 03/21/21 03/21/21 History Past Med/Surg History Social History Smoking Status: Current every day smoker Cigarettes Per Day: 1 PPD (~6 cigarettes); Second Hand Exposure: Yes; Do You Dip or Chew Tobacco: No; Tobacco Cessation Education Requested by Patient: No Hx Alcohol Use: No Hx Substance Use: No Preferred Language: German Communication Ability: Effective Communication Ability Comment: Patient with confusion/ disorientation at this time. Interface Designer Required: No Beliefs That Will Affect Care: None Current Living Situation: Other Current Living Situation Comment: Patient lives in a longterm for seizure disorder. Other Information That Helps Us Care for You: Yes (Recent dosage changes to seizure medications) Feels Safe at Home: Yes Safety Concerns: Feels Safe At This Time Assistive Devices: Walker and Wheelchair Review of Systems Review of Systems: Unobtainable due to cognitive status Physical Exam Constitutional: WD/WN, vitals as above Eyes: PERRL, conjunctivae normal, anicteric sclerae ENMT: external ear and nose normal, oropharynx normal Neck: trachea midline, no thyromegaly Respiratory: normal respiratory effort, lungs clear to auscultation Cardiovascular: RRR, no murmur, no edema Gastrointestinal (Abdomen): normal bowel sounds, soft, nontender, no hepatosplenomegaly Musculoskeletal: . UPPER EXTREMITIES: upper extremities are grossly normal. Psychiatric: Orientation: alert, oriented to person and oriented to place Results & Data Results & Data ([facility]) Vital Signs (Past 12 Hours) Vital Signs Temp Pulse Resp BP BP Pulse Ox 03/21/21 16:42 67 18 94 03/21/21 16:00 63 21 128/82 03/21/21 15:30 65 20 93 03/21/21 15:20 64 24 87 L 03/21/21 15:10 64 25 H 92 03/21/21 15:00 63 22 93 03/21/21 14:50 70 17 93 03/21/21 14:40 61 22 92 03/21/21 14:30 63 20 93 03/21/21 14:20 63 21 94 03/21/21 14:10 65 25 H 93 03/21/21 14:00 66 21 93 03/21/21 13:50 65 21 93 03/21/21 13:40 65 21 92 03/21/21 13:31 65 27 H 91 03/21/21 13:00 65 22 116/82 03/21/21 12:25 72 20 118/74 90 03/21/21 12:21 69 19 118/74 91 03/21/21 11:01 36.2 C L 71 14 109/73 93 PG Care Time/CCT Total # of Minutes Spent Total Time Spent with Patient: Total time spent is greater than 50% in coordination of care (as documented) at patient's floor/unit and/or counseling patient: Coding Level of Care Code 08168 Initial Inpt Care Lvl 3 Diagnoses AMS (altered mental status) R41.82 Altered mental status type: unspecified Hypercarbia R06.89 Seizure R56.9 (1) AMS (altered mental status) Altered mental status type: unspecified Qualified Code(s): R41.82 - Altered mental status, unspecified
[2021-03-21] MEDS ORDERED: traZODone HCL 50 MG TAB PO PRN (17:59)
--- NOTE | 2021-03-21 18:33 | Electrocardiogram Report ---
Test Reason : Blood Pressure : / mmHG Vent. Rate : 067 BPM Atrial Rate : 067 BPM P-R Int : 160 ms QRS Dur : 086 ms QT Int : 398 ms P-R-T Axes : 034 059 052 degrees QTc Int : 420 ms Normal sinus rhythm Nonspecific T wave abnormality Abnormal ECG No previous ECGs available Confirmed by Mynor Feliciano ([id number]) on 03/21/2021 6:32:53 PM Referred By: REFERRED SELF Confirmed By:Veto Feliciano
[2021-03-21] MEDS ORDERED: LACTULOSE SYRUP 20 GM/30 ML UDC PO SCH (19:00)
[2021-03-21] MEDS: DONEPEZIL HCL 5 MG TAB PO SCH (20:35)
[2021-03-21] MEDS: DOCUSATE SODIUM 100 MG CAP PO SCH (20:35)
[2021-03-21] MEDS: lamoTRIgine 100 MG TAB PO SCH (20:36)
[2021-03-21] MEDS: ARTIFICIAL TEARS OP SCH (20:39)
[2021-03-21] MEDS: ONFI~ORDER AWAITING ACTION SCH ×4 (20:51→23:31)
[2021-03-21] MEDS ORDERED: GABAPENTIN 400 MG CAP PO SCH (21:00)
[2021-03-21] MEDS ORDERED: QUEtiapine FUMARATE 200 MG TAB PO SCH (21:00)
[2021-03-21] MEDS ORDERED: GABAPENTIN 800 MG TAB PO SCH (21:00)
[2021-03-21 22:10] LABS: Appearance Urine Clear (Clear); Bacteria Urine Automated Negative (Negative); Bilirubin Urine Negative (Negative); Blood Urine Negative (Negative); Color Urine Dark Yellow; Epithelial Cell Urine Auto 20-30 /lpf (0-5); Glucose Urine UA Negative (Negative); Ketones Urine Negative (Negative); Leukocyte Esterase Urine 1+ (Negative); Nitrite Urine Negative (Negative); Protein Urine Negative (Negative); RBC Urine Automated 0-4 /hpf (0-4); Specific Gravity Urine > 1.045 (1.000-1.030); Urobilinogen Urine Negative (Negative)
[2021-03-21 23:59] LABS: Base Excess VBG 3.3 mEq/L; pH VBG 7.34 (7.36-7.41)
[2021-03-22] MEDS: LACTULOSE 200 GM, WATER, STERILE IRRIG 700 ML, BARCODE IDENTIFIER 1 EA PR SCH ×2 (00:15→07:05)
[2021-03-22] MEDS: UNIT DOSE COMPOUND PR SCH ×2 (00:15→07:05)
[2021-03-22 06:26] LABS: Base Excess VBG 5.5 mEq/L; HCO3 VBG 33 mmol/L; Oxygen Saturation VBG < 60.0 %; PCO2 VBG 65 mmHg (38-50); PO2 VBG 29 mmHg; pH VBG 7.33 (7.36-7.41)
[2021-03-22 06:46] LABS: Hematocrit (blood only) 35.1 % (37-47); Hemoglobin 11.2 g/dL (12.0-16.0); Mean Corpuscular Hemoglobin 29.7 pg (25-34); Mean Corpuscular Hgb Conc 31.9 g/dL (32-36); Mean Corpuscular Volume 93.1 fL (80-100); Platelet Count 249 K/uL (130-400); RDW Coefficient of Variation 13.5 % (11.5-14.5); RDW Standard Deviation 45.8 fL (36.4-46.3); Red Blood Count 3.77 M/uL (4.2-5.4); White Blood Count 7.11 K/uL (4.8-10.8)
[2021-03-22] MEDS: ONFI~ORDER AWAITING ACTION SCH ×4 (07:06→16:21)
[2021-03-22] MEDS: ARTIFICIAL TEARS OP SCH ×2 (08:19→20:36)
[2021-03-22] MEDS: lamoTRIgine 100 MG TAB PO SCH ×3 (08:19→20:37)
[2021-03-22] MEDS: PANTOprazole 40 MG TAB PO SCH (08:19)
[2021-03-22] MEDS: FENOFIBRATE NANOCRYSTALLIZED 145 MG TABLET PO SCH (08:19)
[2021-03-22] MEDS: ESCITALOPRAM OXALATE 20 MG TAB PO SCH (08:20)
[2021-03-22] MEDS: DOCUSATE SODIUM 100 MG CAP PO SCH ×2 (08:20→20:38)
--- NOTE | 2021-03-22 12:38 | Hospitalist Progress Note ---
Date of Service March 22, 2021 Assessment & Plan (1) AMS (altered mental status): Plan: As more history is available, this appears to be iatrogenic, given how her seizure medications have been increased approximately 3 weeks ago, which coincides with her change of mental status. Patient reports feeling better today. Consulted Neurology and waiting for input. VBG has iproved as well as ammonia. (2) Hypercarbia: Patient is a smoker. She may have COPD. will benefit from PFT as an outpatient (3) Seizure: will resume home meds. (2) Hypercarbia: (3) Seizure: Admission and Anticipated Discharge Date Admission Date: March 21, 2021 Subjective It appears patient had a siezure 3 weeks ago and since then her medications have been upped. From that time, her mental status has worsened and she has been confused and lethargic. Patient today reports feeling better and she wants to be discharge. Review of Systems Review of Systems: All systems reviewed & are unremarkable except as noted in HPI & below Physical Exam Constitutional: WD/WN, vitals as above Eyes: PERRL, conjunctivae normal, anicteric sclerae ENMT: external ear and nose normal, oropharynx normal Neck: trachea midline, no thyromegaly Respiratory: normal respiratory effort, lungs clear to auscultation Cardiovascular: RRR, no murmur, no edema Gastrointestinal (Abdomen): normal bowel sounds, soft, nontender, no hepatosplenomegaly Musculoskeletal: no cyanosis or clubbing, extremities motor strength 5/5 Psychiatric: Orientation: alert, oriented to person and oriented to place Results & Data Results & Data ([facility]) Vital Signs (Past 12 Hours) Vital Signs Temp Pulse Pulse Resp BP BP Pulse Ox 03/22/21 12:06 37.0 C 78 18 116/81 91 03/22/21 07:45 36.5 C 66 16 117/77 95 03/22/21 04:51 36.5 C 64 17 99/63 L 95 03/22/21 01:24 62 22 95 PG Care Time/CCT Total # of Minutes Spent Total Time Spent with Patient: Total time spent is greater than 50% in coordination of care (as documented) at patient's floor/unit and/or counseling patient: Coding Level of Care Code 34037 Subseq Hosp Care Lvl 2 Diagnoses AMS (altered mental status) R41.82 Altered mental status type: unspecified Hypercarbia R06.89 Seizure R56.9 (1) AMS (altered mental status) Altered mental status type: unspecified Qualified Code(s): R41.82 - Altered mental status, unspecified
[2021-03-22] MEDS: NICOTINE 14 MG/24 HR PATCH TD SCH (16:39)
[2021-03-22] MEDS: DONEPEZIL HCL 5 MG TAB PO SCH (20:37)
[2021-03-22] MEDS: BRIVARACETAM PO SCH (20:37)
[2021-03-23 06:16] LABS: Albumin Level 3.5 gm/dl (3.4-5.0); BUN Creatinine Ratio 19.9 (10-20); Calcium 9.4 mg/dl (8.5-10.1); Est GFR (African American) 115.5 ml/min; Est GFR (Non-African American) 99.7 ml/min; Potassium 4.1 mmol/L (3.5-5.1)
[2021-03-23 06:20] LABS: Albumin Globulin Ratio 1.1 (0.9-2); Bilirubin,Total 0.4 mg/dl (0.2-1); Globulin 3.3 gm/dl (2.5-4.0); Total Protein 6.8 gm/dl (6.4-8.2)
[2021-03-23] MEDS: ARTIFICIAL TEARS OP SCH ×2 (08:25→21:02)
[2021-03-23] MEDS: DOCUSATE SODIUM 100 MG CAP PO SCH ×2 (08:26→21:03)
[2021-03-23] MEDS: BRIVARACETAM PO SCH ×2 (08:26→21:01)
[2021-03-23] MEDS: PANTOprazole 40 MG TAB PO SCH (08:26)
[2021-03-23] MEDS: FENOFIBRATE NANOCRYSTALLIZED 145 MG TABLET PO SCH (08:27)
[2021-03-23] MEDS: NICOTINE 14 MG/24 HR PATCH TD SCH (08:27)
[2021-03-23] MEDS: ESCITALOPRAM OXALATE 20 MG TAB PO SCH (08:27)
[2021-03-23] MEDS: lamoTRIgine 100 MG TAB PO SCH ×3 (08:27→21:02)
[2021-03-23] MEDS ORDERED: COUGH DROP (SUGAR FREE) LOZ 24 LOZ/1 BOX BUCCAL ONE (11:30)
--- NOTE | 2021-03-23 13:46 | Consultation Report ---
DATE OF CONSULTATION: 03/22/2021 REASON FOR CONSULTATION: Gait dysfunction. 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 She has had seizures since early life and been on multiple anticonvulsants. She has multiple seizure types, which are described as head drop, staring, picking, fidgeting with hands, upper extremity movements and throat clearing with loss of consciousness and incontinence. The duration may last minutes to 20 minutes and she can be postictal thereafter. She also has drop attacks, which lasts seconds to minutes and are rare. She also has generalized tonic-clonic seizures, duration 1-5 minutes. She was last intubated and first intubated about 5 years ago at [facility]. On this background, she has never had well controlled seizures. At the end of 02/2021, she had an episode that was atypically protracted, her head dropped, she was confused, disoriented, she slumped over and was off of her baseline for 1-2 hours. Usually she returns to baseline within 10 minutes. Her neurologist at [facility] was contacted and recommended increasing her Onfi to 10 mg in the morning and 20 mg in the evening without any change in her other anticonvulsants. Thereafter, she became increasingly sedated, unsteady and confused and had multiple falls. On 2 occasions, she was seen at [facility] and CAT scans were performed. The [facility] that runs the longterm that she lives in contacted the neurologist who recommended the Onfi be reduced back to baseline to 10 mg twice a day, but they had not received the new packaging of drugs, so that had not occurred. Yesterday, she had another fall and her family decided to bring her to another medical center. She has otherwise been well. She denies any significant headaches. Overnight, she did not receive her Briviact or Onfi, presumably because it was nonformulary and medications were not available, but apparently today she is much more awake and alert. No seizures have been noted. Briviact and Onfi have been rewritten to start this evening. She takes Briviact 100 mg twice a day, Lamictal 200 mg twice a day, clobazam 10 mg b.i.d., clonazepam 1 mg as needed, gabapentin 400 mg t.i.d. and 400 mg at bedtime, lactulose 15 mL q.6 in addition to her psychiatric medications. Her CT of the head, noncontrast, which I reviewed shows paranasal sinus disease with suggestion of acute sinusitis and no intracranial abnormality. Her CT of the cervical spine shows no evidence of acute fracture or traumatic subluxation. Lab work notable for a white count of 10.9, H and H of 13/40, platelet count 293. ABG; pH of 7.34, pCO2 of 57, venous pO2 of 41. Chemistry notable for an anion gap of 2, AST of 47, ammonia of 51 and now 27 today. Urinalysis notable for 1+ leukocyte esterase, 10-30 white cells, 20-30 epithelial cells. COVID-19 is negative. Urine culture pinpoint growth present, reincubating. PAST MEDICAL HISTORY: Notable for psychiatric disease, VNS placement. SOCIAL HISTORY: The patient smokes. Lives in a longterm. FAMILY HISTORY: Considered to be noncontributory. ALLERGIES: Family is not aware of any allergies other than TOPAMAX CAUSING DIFFICULTY WITH CONCENTRATION. HOME MEDICATIONS: Tylenol, antacid, Briviact 100 mg twice a day, calcium, Refresh Relieva, Coricidin HBP Cold and Flu, clobazam 10 mg in the morning and 20 mg at night, clonazepam 1 mg p.o. as directed, clotrimazole, cyclobenzaprine, Colace, donepezil, Celexa, fenofibrate, gabapentin 400 mg t.i.d. and 400 mg at bedtime, ibuprofen, lactulose, Lamictal 200 t.i.d., metoprolol, naproxen, omeprazole, Seroquel 400 at bedtime, and trazodone 150 at bedtime. PHYSICAL EXAMINATION: VITAL SIGNS: 116/81, 78, 18, 37. NEUROLOGIC: The patient is awake, alert, oriented x3. She knows who the president is and there is no right/left confusion. She is modestly irritable. There is some healing scabbing on her left upper lip and mild bruising in the left forehead. Otherwise, her head is normocephalic, atraumatic. Her pupils are equal, round and reactive to light. Could not accurately visualize the optic nerves. Sharma were full. Motility normal. There is normal facial symmetry. Normal bulk and tone. Full strength in the upper and lowers. There is a postural and intention tremor bilaterally. [id number] was normal. Reflexes symmetric. Toes downgoing. Gait was not tested. IMPRESSION AND PLAN: This patient has Sarkis-Gastaut. She had a breakthrough seizure 3 weeks ago and her Onfi was raised in dose by 30%. Subsequently, the patient became lethargic, confused and had increased falls. This represents toxicity related to the Onfi. I think the patient is looking better as she did not receive the dose last evening. We will have them give 10 mg twice a day today in a compressed schedule and resume the dose of the Briviact and continue the rest of her anticonvulsants. Were she to have a breakthrough seizure, one could consider intravenously loading with Keppra. I would recommend reaching out to the patient's [facility] epileptologist, Dr. Valdes, for further advice regarding her plan of any future changes of anticonvulsants. The patient should follow up with her neurologist. Job ID: [id number] [facility]
--- NOTE | 2021-03-23 19:46 | Progress Notes ---
DATE OF SERVICE: 03/23/2021 SUBJECTIVE: I am seeing Sparkle in followup of [place]-Gastaut with anticonvulsant toxicity related to an increased dose in Onfi. The patient is back on her preincreased dose of Onfi 10 mg twice a day a nd has resumed all of her at home anticonvulsants in the appropriate doses. She has not had any seiz ures overnight that she is aware of and she feels much improved. OBJECTIVE: On exam, she is awake and alert, asking appropriate questions. Speech and language are n ormal. IMPRESSION AND PLAN: The patient with Sarkis-Gastaut, recent increased falls and confusion related t o an increase in the Onfi dose from 10 mg b.i.d. to 10 mg in the morning and 20 mg in the evening. The patient has improved markedly. Physical therapy and occupational therapy have seen her and ambul ated with her and do not believe that she needs any inpatient rehabilitation. We will sign off at [facility], and the patient should reach out to her treating neurologist at [facility] mario albertoi ng any further adjustments of her anticonvulsants and need for routine followup. Job ID: [id number]
[2021-03-23] MEDS: DONEPEZIL HCL 5 MG TAB PO SCH (21:03)
--- NOTE | 2021-03-23 21:12 | Hospitalist Progress Note ---
Date of Service March 23, 2021 Assessment & Plan (1) AMS (altered mental status): Plan: As more history is available, this appears to be iatrogenic, given how her seizure medications have been increased approximately 3 weeks ago, which coincides with her change of mental status. Patient reports feeling better today. Consulted Neurology: Antiepileptic medication was returned to prior dosage. patient appears much more awake now. VBG has improved as well as ammonia. awaiting input from PT/OT on whether patient needs to go to rehab or back to shelter. (2) Hypercarbia: Plan: Patient is a smoker. She may have COPD. will benefit from PFT as an outpatient (3) Seizure: (4) Acute metabolic encephalopathy: Plan: Likely multifactorial hypercarbia and hyperammonia Mainly due to antiepileptic medication. dose will be loweredl (5) Acute respiratory failure with hypercapnia: Plan: As noted above. This was present on admission. Patient required BIPAP as patient had change of mental status. This appears to have been iatrogenic from her seizure medications. Admission and Anticipated Discharge Date Admission Date: March 21, 2021 Subjective Patient reports no new symptoms. She is feeling better. Family is at bedside and they are updated. Review of Systems Review of Systems: All systems reviewed & are unremarkable except as noted in HPI & below Physical Exam Constitutional: WD/WN, vitals as above Eyes: PERRL, conjunctivae normal, anicteric sclerae ENMT: external ear and nose normal, oropharynx normal Neck: trachea midline, no thyromegaly Respiratory: normal respiratory effort, lungs clear to auscultation Cardiovascular: RRR, no murmur, no edema Gastrointestinal (Abdomen): normal bowel sounds, soft, nontender, no hepatosplenomegaly Musculoskeletal: no cyanosis or clubbing, extremities motor strength 5/5 Psychiatric: Orientation: alert, oriented to person and oriented to place Results & Data Results & Data ([facility]) Vital Signs (Past 12 Hours) Vital Signs Temp Pulse Pulse Resp BP BP Pulse Ox 03/23/21 19:17 36.7 C 74 20 124/78 96 03/23/21 16:55 71 03/23/21 15:29 36.5 C 69 18 122/77 95 03/23/21 12:07 36.5 C 72 20 124/83 96 PG Care Time/CCT Total # of Minutes Spent Total Time Spent with Patient: Total time spent is greater than 50% in coordination of care (as documented) at patient's floor/unit and/or counseling patient: Coding Level of Care Code 20340 Subseq Hosp Care Lvl 3 Diagnoses AMS (altered mental status) R41.82 Altered mental status type: unspecified Hypercarbia R06.89 Seizure R56.9 Acute metabolic encephalopathy G93.41 Acute respiratory failure with hypercapnia J96.02 Time Spent (min) 35 (1) AMS (altered mental status) Altered mental status type: unspecified Qualified Code(s): R41.82 - Altered mental status, unspecified
[2021-03-24] MEDS: ARTIFICIAL TEARS OP SCH (08:10)
[2021-03-24] MEDS: PANTOprazole 40 MG TAB PO SCH (08:11)
[2021-03-24] MEDS: FENOFIBRATE NANOCRYSTALLIZED 145 MG TABLET PO SCH (08:11)
[2021-03-24] MEDS: NICOTINE 14 MG/24 HR PATCH TD SCH (08:11)
[2021-03-24] MEDS: BRIVARACETAM PO SCH ×2 (08:12→09:35)
[2021-03-24] MEDS: ESCITALOPRAM OXALATE 20 MG TAB PO SCH (08:12)
[2021-03-24] MEDS: DOCUSATE SODIUM 100 MG CAP PO SCH (08:12)
[2021-03-24] MEDS: lamoTRIgine 100 MG TAB PO SCH (08:14)
--- NOTE | 2021-03-24 10:50 | Discharge Summary ---
Date of Service March 24, 2021 Principal Diagnosis Altered mental status (iatrogenic) from seizure medications Discharge Exam Constitutional WD/WN, vitals as above Eyes PERRL, conjunctivae normal, anicteric sclerae ENMT external ear and nose normal, oropharynx normal Neck trachea midline, no thyromegaly Respiratory normal respiratory effort, lungs clear to auscultation Cardiovascular RRR, no murmur, no edema Gastrointestinal (Abdomen) normal bowel sounds, soft, nontender, no hepatosplenomegaly Musculoskeletal no cyanosis or clubbing, extremities motor strength 5/5 Psychiatric Orientation: alert, oriented to person and oriented to place Discharge Data Allergies Allergy/AdvReac Type Severity Reaction Status Date / Time topiramate [From Topamax] Allergy Unknown Verified 03/21/21 15:22 Consultations 03/21/21 14:54 ED Decision to Admit Stat 03/21/21 17:22 Consult Neurology Routine 03/22/21 08:50 Consult Health Information Management Routine Ordered Studies 03/21/21 11:46 CT head/brain wo con Stat 03/21/21 12:08 CT abd pelvis IV con only Stat CT cervical spine wo con Stat Hospital Course (1) AMS (altered mental status): As more history is available, this appears to be iatrogenic, given how her seizure medications have been increased approximately 3 weeks ago, which coincides with her change of mental status. Patient reports feeling better today. Consulted Neurology: Antiepileptic medication was returned to prior dosage. Will return to your prior dose of 10 mg PO BID. patient appears much more awake now. VBG has improved as well as ammonia. PT/OT state patient can return to [facility]. Recommend followup with Neurology as an outpatient. (2) Hypercarbia: Patient is a smoker. She may have COPD. will benefit from PFT as an outpatient (3) Seizure: (4) Acute metabolic encephalopathy: Likely multifactorial hypercarbia and hyperammonia Mainly due to antiepileptic medication. dose will be lowered. She is back to her baseline. (5) Acute respiratory failure with hypercapnia: As noted above. This was present on admission. Patient required BIPAP as patient had change of mental status. This appears to have been iatrogenic from her seizure medications. Total Time Total Time Spent Total Time Spent (In Minutes): 32 Discharge Plan Discharge Items Patient Disposition: Home - Self-Care Reason For Visit: WORSENING DEMNTIA/CONFUSION/HYPECAPNIC RESP FAILUR Discharge Diagnosis: worsening dementia/ confusion/ hypercapnia resp failure Activity: Resume your previous activity Non-emergency contact: Primary Care Provider Call non-emergency contact if: you have any medication questions Follow-up/Referrals: Nestor Pruett DO [Primary Care Provider] - 03/30/21 1:40 pm Diet: Carb Consistent or DM2 Addtl Attending Provider Instructions: Please continue Boost GC. It appears your symptoms were due to over medication. Once your clobazepam was held, your mental status improved. You also tolerated your previous dose of 10 mg PO BID. Will return to your prior dose of 10 mg PO BID. Recommend that the patient should reach out to her treating neurologist at [facility] regarding any further adjustments of her anticonvulsants and need for routine followup. Pending Studies at Discharge: No Stand-Alone Forms: My [employer], Smoking Cessation Medications and DC Order Prescriptions: New nicotine 7 mg/24 hr Patch 24 Hour 14 mg transdermal QAM Qty: 30 RF: 0 Continued cyclobenzaprine 10 mg tablet 10 mg PO Q8 PRN (Reason: Muscle Spasm) RF: 0 aluminum hydrox-magnesium carb 95-358 mg/15 mL Suspension 10 ml PO UD RF: 0 lamotrigine 200 mg tablet 200 mg PO TID RF: 0 donepezil 5 mg tablet 5 mg PO HS RF: 0 gabapentin 400 mg capsule 400 mg PO TID RF: 0 acetaminophen [Tylenol Extra Strength] 500 mg Tablet 500 mg PO Q4 PRN (Reason: hernandez/fever) RF: 0 fenofibrate micronized 134 mg capsule 134 mg PO DAILY RF: 0 gabapentin 800 mg tablet 400 mg PO HS RF: 0 trazodone 150 mg tablet 150 mg PO HS RF: 0 naproxen sodium [All Day Relief] 220 mg Tablet 440 mg PO Q12H PRN (Reason: Pain) RF: 0 docusate sodium 100 mg Capsule 100 mg PO BID RF: 0 omeprazole 20 mg capsule,delayed release(DR/EC) 20 mg PO DAILY RF: 0 clotrimazole 1 % Cream 1 applic TOPICAL BID PRN (Reason: candidiasis) RF: 0 Coricidin HBP Cold and Flu 2-325 mg Tablet 2 tab PO Q4 PRN (Reason: body aches/congestion) RF: 0 escitalopram oxalate 20 mg tablet 20 mg PO DAILY RF: 0 quetiapine 400 mg tablet 400 mg PO HS RF: 0 Refresh Relieva 0.5-0.9 % Drops 1 drp OPHTHALMIC (EYE) BID RF: 0 calcium carbonate-vitamin D3 [Calcium 600 with Vitamin D3] 600 mg(1,500mg) - 500 unit Capsule 1 cap PO DAILY RF: 0 clobazam [Onfi] 10 mg tablet 10 mg PO BID RF: 0 Briviact 100 mg tablet 100 mg PO BID RF: 0 Discontinued ibuprofen 200 mg Tablet 200 mg PO Q4 PRN (Reason: Fever Or Pain) RF: 0 clonazepam 1 mg tablet,disintegrating 1 mg PO UD RF: 0 metoprolol tartrate 25 mg tablet 12.5 mg PO DIRECTED RF: 0 lactulose 10 gram/15 mL solution 15 ml PO Q6 RF: 0 Discharge Orders: Discharge Order (Routine); Ordered 03/24/21 Ordered By: Anthony Paiz Admission Data Admit Date/Time: 03/21/21 17:25 Attending Provider: Anthony Paiz Admit Provider: Anthony Paiz Primary Care Provider: Nestor Pruett Other Providers: Anthony Paiz ; Diane Jeter ; Lopez Huitron ; Diane Tarango ; Giles Myrick ; [facility] Other Interventions: Discharge Summary Assessment (RN) Last Done: 03/24/21 11:06 Coding Level of Care Code D/C DAY MANAGEMENT >30 MINS Diagnoses AMS (altered mental status) R41.82 Altered mental status type: unspecified Hypercarbia R06.89 Seizure R56.9 Acute metabolic encephalopathy G93.41 Acute respiratory failure with hypercapnia J96.02 Time Spent (min) 32
== END 2021-03-24 13:37 | disposition home health service (06) | DRG 189 ==
LOC: ED 10:43 → 2S 17:25